=== PATIENT | male | born 1975 | race Caucasian/White ===

== ENCOUNTER 2022-06-16 10:07 | Emergency (ER) | payer SELFPAY ==
[~2022-06-16] VITALS: Ht 165.1 cm; Wt 87.3 kg
[2022-06-16 10:19] VITALS: BP 149/87
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
--- NOTE | 2022-06-16 10:45 | NUR ---
DR GONZALEZ AT BEDSIDE FOR EVALUATION
[2022-06-16] MEDS ORDERED: IBUP-2213 PO (10:48)
[2022-06-16] MEDS ORDERED: AMOX-1230 PO (10:49)
--- NOTE | 2022-06-16 11:16 | NUR ---
Rebeca quevedo in [facility] - 06/16/22 at 1135 by ANGIE [facility] AT BEDSIDE
--- NOTE | 2022-06-16 11:30 | NUR ---
ANIMAL REPORT COMPLETED AND FAX TO [facility]
--- NOTE | 2022-06-16 11:30 | NUR ---
Patient discharged with v/s stable. Written and verbal after care instructions given and explained. Patient alert, oriented and verbalized understanding of instructions. Ambulatory with steady gait. All questions addressed prior to discharge. ID band removed. Patient advised to follow up with PMD. Rx of Ibuprofen, Augmentin given. Patient educated on indication of medication including possible reaction and side effects. Opportunity to ask questions provided and answered.
[2022-06-16 11:31] VITALS: BP 149/87
== END 2022-06-16 11:30 | disposition home or self-care (01) ==
LOC: MED 10:07
DX: S30.871A Other superficial bite of abdominal wall, initial encounter (principal); W54.0XXA Bitten by dog, initial encounter; Y93.89 Activity, other specified; Y92.89 Other specified places as the place of occurrence of the external cause; Y99.8 Other external cause status
CPT/HCPCS: 90471; 90715; 99283